=== PATIENT | male | born 2000 | race Caucasian/White ===

== ENCOUNTER 2020-05-29 21:00 | Emergency (ER) | payer OTHER ==
[~2020-05-29] VITALS: Ht 180.3 cm; Wt 104.3 kg
== END 2020-05-29 23:08 | disposition home or self-care (01) ==
LOC: ER 21:00
DX: F41.1 Generalized anxiety disorder (principal); F43.0 Acute stress reaction; I45.6 Pre-excitation syndrome; Z98.890 Other specified postprocedural states
CPT/HCPCS: 93005; 93010; 99284-25

== ENCOUNTER 2020-07-01 10:38 | Emergency (ER) | payer OTHER ==
[~2020-07-01] VITALS: Ht 180.3 cm; Wt 102.5 kg
[2020-07-01] MEDS ORDERED: Percocet 5-3251 EACH PO (11:14)
== END 2020-07-01 11:40 | disposition home or self-care (01) ==
LOC: ER 10:38
DX: L30.9 Dermatitis, unspecified (principal); L03.314 Cellulitis of groin
CPT/HCPCS: 99282

== ENCOUNTER → 2021-07-12 | Outpatient (CLI) | payer OTHER ==
[~2021-07-12] MED LIST: Percocet 5-3251 EACH PO
[2021-07-12 13:02] LABS: BASOPHILS ABSOLUTE AUTO 0.01 K/mm3 (0.00-0.23); BASOPHILS PERCENT AUTO 0 % (0-2); EOSINOPHILS ABSOLUTE AUTO 0.01 K/mm3 (0.00-0.68); EOSINOPHILS PERCENT AUTO 0 % (0-6); Hematocrit 45.9 % (37.0-53.0); Hemoglobin 16.2 g/dL (13.5-17.5); IMMATURE GRAN ABSOLUTE AUTO 0.01 K/mm3 (0.00-0.10); IMMATURE GRAN PERCENT AUTO 0 % (0-1); LYMPHOCYTES ABSOLUTE AUTO 1.14 K/mm3 (0.84-5.20); LYMPHOCYTES PERCENT AUTO 31 % (21-46); MONOCYTES PERCENT AUTO 14 % (4-13); Mean Corpuscular HGB 29.4 pg (26.0-34.0); Mean Corpuscular HGB Conc 35.3 g/dL (31.5-36.5); Mean Corpuscular Volume 83 fL (80-100); Mean Platelet Volume 10.4 fL (9.1-12.4); NEUTROPHILS ABSOLUTE AUTO 2.01 K/mm3 (1.96-9.15); NEUTROPHILS PERCENT AUTO 55 % (41-73); Platelet Count 181 K/mm3 (150-400); RDW Coefficient Variation 11.9 % (11.7-14.2); RDW Standard Deviation 36.1 fL (35.1-46.3); Red Blood Cell Count 5.51 M/mm3 (4.30-5.90); White Blood Cell Count 3.68 K/mm3 (4.00-11.30)
[2021-07-12 13:19] LABS: Alanine Aminotransfer (ALT/SGP 35 U/L (12-78); Albumin, Blood 3.8 g/dL (3.4-5.0); Alk Phos 79 U/L (40-126); Anion Gap 10 mmol/L (6-16); Aspartate Aminotrans (AST/SGOT 30 U/L (12-37); Bilirubin, Total 0.8 mg/dL (0.1-1.0); Blood Urea Nitrogen 16 mg/dL (8-24); Bun/Creatinine Ratio 12.9 (12.0-20.0); CO2, Blood 27 mmol/L (21-32); Chloride, Blood 103 mmol/L (98-108); Creatinine, Blood 1.24 mg/dL (0.60-1.20); Globulin, Blood 3.9 g/dL (2.2-4.0); Glomerular Filtration Rate >60 (60-); Glucose, Blood 102 mg/dL (70-99); Sodium, Blood 140 mmol/L (136-145); Total Protein, Blood 7.7 g/dL (6.4-8.2)
== END | disposition home or self-care (01) ==
LOC: LAB SHORT 12:55
PROVIDERS: Physician Assistant
DX: R04.2 Hemoptysis (principal)
CPT/HCPCS: 80053; 85025; 85379